=== PATIENT | male | born 1955 | race Caucasian/White ===

== ENCOUNTER 2023-06-12 12:15 | Outpatient (CLI) | payer BC, MEDICARE ==
[2023-06-12 13:42] LABS: Hematocrit 42.2 % (38.8-50.0); Hemoglobin 14.1 g/dL (13.5-17.5); Mean Corpuscular HGB CONC 33.4 g/dL (32.0-36.0); Mean Corpuscular Hemoglobin 29.7 pg (27.0-33.0); Platelet Count 188 10x3/uL (150-450); RBC Distribution Width 13.5 % (11.5-14.5); Red Blood Cell (RBC) Count 4.74 10x6/uL (4.32-5.72); White Blood Cell (WBC) Count 7.6 10x3/uL (3.5-10.5)
[2023-06-12 13:47] LABS: Anion Gap 12 mmol/L (10-20); BUN (Urea Nitrogen) 22 mg/dL (8.4-25.7); Calc. Creatinine Clearance 0 mL/min (70-130); Calcium 8.5 mg/dL (7.8-10.44); Carbon Dioxide 27 mmol/L (23-31); Chloride 104 mmol/L (98-107); Estimated GFR 56; Glucose 101 mg/dL (80-115); Potassium 4.2 mmol/L (3.5-5.1); Sodium 139 mmol/L (136-145)
== END 2023-06-12 12:16 | disposition home or self-care (01) ==
LOC: LABBT 12:15
PROVIDERS: ATTEND Otolaryngology Plastic Surgery within the Head & Neck
DX: Z01.818 Encounter for other preprocedural examination (principal); E04.1 Nontoxic single thyroid nodule; E07.9 Disorder of thyroid, unspecified
CPT/HCPCS: 80048; 85027; 93005; 93010

== ENCOUNTER 2023-06-19 09:35 | Observation (INO) | payer BC ==
[2023-06-12 12:49] VITALS: BMI 32.7
[2023-06-19] MEDS ORDERED: fentaNYL PF 100 MCG/2 ML SYRINGE ONE (11:23)
[2023-06-19] MEDS ORDERED: PROPOFOL 40 ML ONE (11:24)
[2023-06-19] MEDS ORDERED: Lidocaine 1% PF 5 ML VIAL ONE (11:24)
[2023-06-19] MEDS ORDERED: Lidocaine 1% (PF) 30 ML VIAL ONE (11:24)
[2023-06-19] MEDS ORDERED: Dexamethasone 20 MG/5 ML VIAL ONE (11:24)
[2023-06-19] MEDS ORDERED: EPINEPHrine 1 MG/ML VIAL ONE (11:24)
[2023-06-19] MEDS ORDERED: Ondansetron PF 4 MG/2 ML Vial ONE (11:24)
[2023-06-19] MEDS ORDERED: ePHEDrine Sulfate 50 MG/10 ML VIAL ONE (11:51)
[2023-06-19] MEDS ORDERED: Phenylephrine 10 MG/ML VIAL ONE (11:54)
[2023-06-19] MEDS ORDERED: Sodium Chloride 0.9% 100 ML ONE (11:54)
[2023-06-19] MEDS ORDERED: Clindamycin/D5W 900 mg/50 ml Premix Bag ONE (11:55)
[2023-06-19] MEDS ORDERED: fentaNYL 50 mcg/mL 1 mL Vial ONE ×2 (12:00→14:05)
[2023-06-19] MEDS ORDERED: Albuterol HFA (OR) 200 PUFF INH ONE (12:02)
[2023-06-19] MEDS ORDERED: PROPOFOL 20 ML ONE (12:02)
[2023-06-19] MEDS ORDERED: Bacitracin Zinc Ointment 30 gm TUBE ONE (13:11)
[2023-06-19] MEDS ORDERED: Ondansetron ODT 4 MG TAB PO PRN (13:54)
[2023-06-19] MEDS ORDERED: Hydrocodone-Acetamin 15 ML UDCUP PO PRN (13:55)
[2023-06-19] MEDS ORDERED: Ondansetron HCl/PF 8 MG in Sodium Chloride 0.9% 50 ML IVPB PRN (16:03)
[2023-06-19] MEDS ORDERED: Ondansetron PF 4 MG/2 ML Vial SLOW IVP PRN (16:15)
[2023-06-19] MEDS: Morphine 2 MG/ML VIAL SLOW IVP PRN (16:21)
[2023-06-19] MEDS: Calcium Carbonate 500 MG TAB PO SCH (16:22)
[2023-06-19] MEDS: Sodium Chloride 0.45% 1,000 ML IV SCH (16:26)
[2023-06-19] MEDS: Clindamycin/D5W 900 MG in Premix 1 BAG IVPB SCH ×2 (16:34→21:00)
[2023-06-19 18:36] LABS: Calcium 8.8 mg/dL (7.8-10.44)
[2023-06-19] MEDS: Atorvastatin Calcium 20 MG TAB PO SCH (21:17)
[2023-06-19] MEDS: traMADol HCl 50 MG TAB PO PRN (21:18)
[2023-06-20 05:33] LABS: ALT (SGPT) 16 U/L (8-55); AST (SGOT) 17 U/L (5-34); Albumin 3.5 g/dL (3.4-4.8); Alkaline Phosphatase 77 U/L (40-110); Anion Gap 11 mmol/L (10-20); BUN (Urea Nitrogen) 20 mg/dL (8.4-25.7); Bilirubin, Total 1.2 mg/dL (0.2-1.2); Calc. Creatinine Clearance 90 mL/min (70-130); Calcium 8.5 mg/dL (7.8-10.44); Carbon Dioxide 25 mmol/L (23-31); Chloride 103 mmol/L (98-107); Estimated GFR 59; Glucose 105 mg/dL (80-115); Potassium 3.8 mmol/L (3.5-5.1); Protein, Total 6.5 g/dL (5.8-8.1); Sodium 135 mmol/L (136-145)
[2023-06-20 08:50] LABS: Calcium 8.5 mg/dL (7.8-10.44)
[2023-06-20] MEDS: Flecainide 50 MG TAB PO SCH (09:23)
[2023-06-20] MEDS: Calcitriol 0.25 MCG CAP PO SCH (09:23)
[2023-06-20] MEDS: Methimazole 10 MG TAB PO SCH (09:23)
[2023-06-20 12:16] VITALS: BP 126/87; TEMP 97.8
== END 2023-06-20 14:30 | disposition home or self-care (01) ==
LOC: SDC 09:35 → SURG A 13:50
PROVIDERS: ADMIT Otolaryngology Plastic Surgery within the Head & Neck; ATTEND Otolaryngology Plastic Surgery within the Head & Neck
PROC: 0GTK0ZZ Resection of Thyroid Gland, Open Approach (ICD-10-PCS; principal; 2023-06-19)
DX: E07.9 Disorder of thyroid, unspecified (principal); E04.1 Nontoxic single thyroid nodule; E05.80 Other thyrotoxicosis without thyrotoxic crisis or storm; E04.9 Nontoxic goiter, unspecified; I48.91 Unspecified atrial fibrillation; K21.9 Gastro-esophageal reflux disease without esophagitis; M19.90 Unspecified osteoarthritis, unspecified site; Z88.0 Allergy status to penicillin; Z88.8 Allergy status to other drugs, medicaments and biological substances; Z88.6 Allergy status to analgesic agent; Z79.899 Other long term (current) drug therapy
CPT/HCPCS: 36415; 82310; 83970; 88305; 88307; C1889; J0171; J1100; J2001; J2272; J2371; J2405; J2704; J3010; J3490